=== PATIENT | male | born 1985 | race American Indian/Alaskan Native ===

== ENCOUNTER 2018-02-19 10:27 | Emergency (ER) | payer OTHER ==
[2018-02-19] MEDS ORDERED: ULTRAM PO ONE (15:26)
--- NOTE | 2018-02-19 15:34 | Emergency Department Report ---
ED Lower Extremity HPI - General Chief Complaint: Extremity Injury, Lower Stated Complaint: EXCESSIVE PAIN LOWER STOMACH Time Seen by Provider: 02/19/18 15:13 Source: patient Mode of arrival: Ambulatory Limitations: No Limitations - History of Present Illness Initial Comments: This is a 32-year-old -[place] male who presents with right hip pain and lower abdominal pain for 2 days. Patient states history of right hip pain couple years back but it resolved. Patient states he thought his pain was related to lifting boxes at work but continues to burn and aggravated with movement. Patient reports pain is 8 out of 10 on pain scale and 5 out of 10 pain scale to lower abdomen. Patient states pain is sharp in sensation to lower abdomen and constant. Admits to nausea and vomiting with 4-5 episodes. Patient is also complaining of cough with burning sensation to throat for over one month. Patient states cough is worse at night. Denies fever, chest pain, shortness of breath, dizziness, sore throat, and recent injury. MD Complaint: hip injury (right hip) Onset/Timin -: days(s) Injury: Hip: Right Type of Injury: unknown Place: work Severity: moderate Severity scale (0 -10): 7 Improves With: nothing Worsens With: movement Other Symptoms: nausea/vomiting Associated Symptoms: ambulatory. denies: snap/pop sensation, swelling, numbness , tingling, unable to bear weight, able to partially bear weight Treatments Prior to Arrival: NSAIDS - Related Data Previous Rx's Medication Instructions Recorded Last Taken Type Naproxen [Naprosyn] 500 mg PO BID #15 tablet 02/19/18 Unknown Rx Omeprazole 40 mg PO DAILY #20 capsule. 02/19/18 Unknown Rx Allergies Allergy/AdvReac Type Severity Reaction Status Date / Time No Known Allergies Allergy Unverified 02/19/18 10:42 ED Review of Systems ROS: Stated complaint: EXCESSIVE PAIN LOWER STOMACH Other details as noted in HPI Constitutional: denies: chills, fever Respiratory: cough (cough at night). denies: shortness of breath, wheezing Cardiovascular: denies: chest pain, palpitations, syncope Gastrointestinal: abdominal pain (lower abdominal pain ), nausea, vomiting. denies: diarrhea, constipation, hematemesis, melena, hematochezia Musculoskeletal: arthralgia (right hip pain). denies: back pain, joint swelling Skin: denies: rash, lesions Neurological: denies: headache, weakness, numbness, paresthesias Psychiatric: denies: anxiety, depression ED Past Medical Hx - Past Medical History Previous Medical History?: No - Surgical History Additional Surgical History: Torsion, hernia - Medications Home Medications: Home Medications Medication Instructions Recorded Confirmed Last Taken Type Naproxen [Naprosyn] 500 mg PO BID #15 tablet 02/19/18 Unknown Rx Omeprazole 40 mg PO DAILY #20 capsule. 02/19/18 Unknown Rx ED Physical Exam - General Limitations: No Limitations General appearance: alert, in no apparent distress - Respiratory Respiratory exam: Present: normal lung sounds bilaterally. Absent: respiratory distress - Cardiovascular Cardiovascular Exam: Present: regular rate, normal rhythm. Absent: systolic murmur, diastolic murmur, rubs, gallop - GI/Abdominal GI/Abdominal exam: Present: soft, tenderness (right lower quadrant), normal bowel sounds. Absent: distended, guarding, rebound, rigid, organomegaly, mass - Expanded Lower Extremity Exam Right Hip exam: Present: full ROM, tenderness. Absent: swelling, abrasion, laceration , ecchymosis, deformity, crepidus, dislocation, erythema, external rotation, internal rotation, shortening Upper Leg exam: Present: normal inspection, full ROM Knee exam: Present: normal inspection, full ROM Lower Leg exam: Present: normal inspection, full ROM Ankle exam: Present: normal inspection, full ROM Foot/Toe exam: Present: normal inspection, full ROM Neuro vascular tendon exam: Present: no vascular compromise Gait: Positive: observed and normal - Neurological Exam Neurological exam: Present: alert, oriented X3 - Psychiatric Psychiatric exam: Present: normal affect, normal mood - Skin Skin exam: Present: warm, dry, intact, normal color. Absent: rash ED Course Vital Signs 02/19/18 02/19/18 10:42 15:47 Temperature 98.1 F Pulse Rate 84 Respiratory 16 18 Rate Blood Pressure 128/74 O2 Sat by Pulse 97 Oximetry ED Lower Extremity MDM - Lab Data Result diagrams: 02/19/18 17:24 02/19/18 17:24 Lab Results 02/19/18 02/19/18 02/19/18 Range/Units 15:46 17:24 17:24 WBC 7.3 (4.5-11.0) K/mm3 RBC 4.98 (3.65-5.03) M/mm3 Hgb 14.9 (11.8-15.2) gm/dl Hct 43.4 (35.5-45.6) % MCV 87 (84-94) fl MCH 30 (28-32) pg MCHC 34 (32-34) % RDW 14.6 (13.2-15.2) % Plt Count 222 (140-440) K/mm3 Lymph % (Auto) 35.4 H (13.4-35.0) % [place] % (Auto) 7.3 (0.0-7.3) % Eos % (Auto) 1.7 (0.0-4.3) % Baso % (Auto) 2.2 H (0.0-1.8) % Lymph # 2.6 (1.2-5.4) K/mm3 [place] # 0.5 (0.0-0.8) K/mm3 Eos # 0.1 (0.0-0.4) K/mm3 Baso # 0.2 H (0.0-0.1) K/mm3 Seg Neutrophils % 53.4 (40.0-70.0) % Seg Neutrophils # 3.9 (1.8-7.7) K/mm3 Sodium 140 (137-145) mmol/L Potassium 3.8 (3.6-5.0) mmol/L Chloride 100.1 (98-107) mmol/L Carbon Dioxide 27 (22-30) mmol/L Anion Gap 17 mmol/L BUN 12 (9-20) mg/dL Creatinine 0.8 (0.8-1.5) mg/dL Estimated GFR > 60 ml/min BUN/Creatinine Ratio 15 % Glucose 77 (75-100) mg/dL Calcium 9.7 (8.4-10.2) mg/dL Urine Color Yellow (Yellow) Urine Turbidity Clear (Clear) Urine pH 6.0 (5.0-7.0) Ur Specific [place] 1.023 (1.003-1.030) Urine Protein <15 mg/dl (Negative) mg/dL Urine Glucose (UA) Neg (Negative) mg/dL Urine Ketones Neg (Negative) mg/dL Urine Blood Neg (Negative) Urine Nitrite Neg (Negative) Urine Bilirubin Neg (Negative) Urine Urobilinogen 2.0 (<2.0) mg/dL Ur Leukocyte Esterase Neg (Negative) Urine WBC (Auto) < 1.0 (0.0-6.0) /HPF Urine RBC (Auto) 3.0 (0.0-6.0) /HPF U Epithel Cells (Auto) < 1.0 (0-13.0) /HPF Urine Mucus Few /HPF - Radiology Data Radiology results: report reviewed PROCEDURE: XR HIP 2-3V RT TECHNIQUE: RIGHT hip radiographs, 2 views each, including AP view of the pelvis. HISTORY: Right hip pain. COMPARISON: No prior studies are available for comparison. FINDINGS: Fracture (s) and/or Dislocation(s): None . Joint space(s): Normal. Soft tissues: Normal. Bone mineralization: Normal. Foreign bodies: None. IMPRESSION: No radiographic evidence of acute abnormality. PROCEDURE: CT ABDOMEN PELVIS WO CON TECHNIQUE: Computerized axial tomography of the abdomen and pelvis was performed without intravenous contrast. This study is performed without intravascular contrast material and its sensitivity for abdominal and pelvic pathology, including neoplasms, inflammation, abscess, free fluid, thrombosis, arterial dissection and infarction, is reduced compared with a contrast enhanced study. HISTORY: RLQ tenderness COMPARISON: No prior studies are available for comparison. FINDINGS: Visualized lower thorax: In the right infrahilar region there is a low-density 2.1 centimeter lesion, which may be related to a cyst. Liver: Mild diffuse low attenuation of the liver is compatible with fatty infiltration. Spleen: Normal size and attenuation. Gallbladder and biliary system: Normal. Pancreas: Normal. Adrenals: Normal. Kidneys: Normal. GI tract: Appendix is visualized and does not appear inflamed. No bowel obstruction or inflammation is seen.. Lymph nodes and mesentery: Borderline sized bilateral inguinal lymph nodes are present. Vasculature: Normal. Bladder: Normal. Reproductive organs: Normal. Peritoneum: No free fluid. Musculoskeletal structures: No significant abnormality. Other: None. IMPRESSION: 2.1 centimeter low-density lesion is seen in the right infrahilar region of the chest, which may be a congenital cyst. Consider follow-up with CT chest with IV contrast to exclude any abnormal enhancement. No bowel obstruction or inflammation - Medical Decision Making This is a 32 y.o. male presents with right hip pain and lower abdominal pain for 2 days. Patient was examined by me. Vitals are normal and patient is in no acute distress. Patient was given tramadol 50 mg by mouth once while in the ER. Obtained CBC, BMP, and urinalysis all unremarkable. X-ray of right hip and CT of abdomen and pelvis obtained and dictated by radiologist. XR of right hip: No radiographic evidence of acute abnormality. CT of abdomen: 2.1 centimeter low-density lesion is seen in the right infrahilar region of the chest, which may be a congenital cyst. Consider follow-up with CT chest with IV contrast to exclude any abnormal enhancement. No bowel obstruction or inflammation. Patient informed of results. Start naproxen for pain. Start trial run of omeprazole 40 mg by mouth daily for GERD and follow- up with primary care provider. Referral to Primary care provider for repeat CT of chest with contrast. Plan discussed with patient to discharge home and treat outpatient. He agrees with ER plan. Patient discharged home in stable condition. Follow up with PCP in 2-3 days. Critical care attestation.: If time is entered above; I have spent that time in minutes in the direct care of this critically ill patient, excluding procedure time. ED Disposition Clinical Impression: Right hip pain, Lower abdominal pain Strain of muscle of right hip Qualifiers: Encounter type: initial encounter Qualified Code(s): S76.011A - Strain of muscle, fascia and tendon of right hip, initial encounter GERD (gastroesophageal reflux disease) Qualifiers: Esophagitis presence: without esophagitis Qualified Code(s): K21.9 - Gastro- esophageal reflux disease without esophagitis Disposition: - TO HOME OR SELFCARE Is pt being admited?: No Does the pt Need Aspirin: No Condition: Stable Instructions: Arthralgia (ED), Abdominal Pain (ED), Muscle Strain (ED), Gastroesophageal Reflux Disease (ED) Additional Instructions: Follow-up with primary care provider to have repeat CT scan of chest with IV contrast to reevaluate the lesion to chest. Take Tylenol or ibuprofen for pain every 6 hours as needed for pain. Follow-up with primary care provider in 2-3 days. Prescriptions: Naproxen [Naprosyn] 500 mg PO BID #15 tablet Omeprazole 40 mg PO DAILY #20 capsule. Referrals: [facility] [Outside] - 3-5 Days [facility] [place] [Outside] - 3-5 Days RENE KIM MD [Staff Physician] - 3-5 Days Forms: Work/School Release Form(ED) Time of Disposition: 19:15 Print Language: VINCENTIAN
[2018-02-19 15:57] LABS: Bilirubin,Urine NEG (Negative); Blood,Urine NEG (Negative); Color,Urine Yellow (Yellow); Mucus,Urine FEW /HPF; Protein,Urine <15 mg/dL mg/dL (Negative); WBC,Urine < 1.0 /HPF (0.0-6.0)
--- NOTE | 2018-02-19 17:44 | XRay Report ---
FINAL REPORT PROCEDURE: XR HIP 2-3V RT TECHNIQUE: RIGHT hip radiographs, 2 views each, including AP view of the pelvis. HISTORY: Right hip pain. COMPARISON: No prior studies are available for comparison. FINDINGS: Fracture (s) and/or Dislocation(s): None . Joint space(s): Normal. Soft tissues: Normal. Bone mineralization: Normal. Foreign bodies: None. IMPRESSION: No radiographic evidence of acute abnormality.
[2018-02-19 18:09] LABS: Basophils # (Auto) 0.2 K/mm3 (0.0-0.1); Basophils % (Auto) 2.2 % (0.0-1.8); Eosinophils # (Auto) 0.1 K/mm3 (0.0-0.4); Eosinophils % (Auto) 1.7 % (0.0-4.3); Hematocrit 43.4 % (35.5-45.6); Hemoglobin 14.9 gm/dl (11.8-15.2); Lymphocytes # (Auto) 2.6 K/mm3 (1.2-5.4); Lymphocytes % (Auto) 35.4 % (13.4-35.0); Mean Corpuscular HGB Conc 34 % (32-34); Mean Corpuscular Hemoglobin 30 pg (28-32); Mean Corpuscular Volume 87 fl (84-94); Monocytes # (Auto) 0.5 K/mm3 (0.0-0.8); Monocytes % (Auto) 7.3 % (0.0-7.3); Platelet Count 222 K/mm3 (140-440); Red Blood Count 4.98 M/mm3 (3.65-5.03); Red Cell Distribution Width 14.6 % (13.2-15.2)
[2018-02-19 18:17] LABS: BUN/Creatinine Ratio 15; Blood Urea Nitrogen 12 mg/dL (9-20); Calcium 9.7 mg/dL (8.4-10.2); Hemolysis Index 14
--- NOTE | 2018-02-19 18:50 | Cat Scan Report ---
FINAL REPORT PROCEDURE: CT ABDOMEN PELVIS WO CON TECHNIQUE: Computerized axial tomography of the abdomen and pelvis was performed without intravenous contrast. This study is performed without intravascular contrast material and its sensitivity for abdominal and pelvic pathology, including neoplasms, inflammation, abscess, free fluid, thrombosis, arterial dissection and infarction, is reduced compared with a contrast enhanced study. HISTORY: RLQ tenderness COMPARISON: No prior studies are available for comparison. FINDINGS: Visualized lower thorax: In the right infrahilar region there is a low-density 2.1 centimeter lesion, which may be related to a cyst. Liver: Mild diffuse low attenuation of the liver is compatible with fatty infiltration. Spleen: Normal size and attenuation. Gallbladder and biliary system: Normal. Pancreas: Normal. Adrenals: Normal. Kidneys: Normal. GI tract: Appendix is visualized and does not appear inflamed. No bowel obstruction or inflammation is seen.. Lymph nodes and mesentery: Borderline sized bilateral inguinal lymph nodes are present. Vasculature: Normal. Bladder: Normal. Reproductive organs: Normal. Peritoneum: No free fluid. Musculoskeletal structures: No significant abnormality. Other: None. IMPRESSION: 2.1 centimeter low-density lesion is seen in the right infrahilar region of the chest, which may be a congenital cyst. Consider follow-up with CT chest with IV contrast to exclude any abnormal enhancement. No bowel obstruction or inflammation
[2018-02-19 19:28] VITALS: BP 146/76
== END 2018-02-19 19:26 | disposition home or self-care (01) ==
LOC: ED 10:27
DX: S76.011A Strain of muscle, fascia and tendon of right hip, initial encounter (principal); R10.30 Lower abdominal pain, unspecified; K21.9 Gastro-esophageal reflux disease without esophagitis; X50.0XXA Overexertion from strenuous movement or load, initial encounter; Y93.89 Activity, other specified; Y92.009 Unspecified place in unspecified non-institutional (private) residence as the place of occurrence of the external cause; Y99.8 Other external cause status
CPT/HCPCS: 36415; 74176; 80048; 81001; 85025; 99284